=== PATIENT | female | born 2000 | race Caucasian/White ===

== ENCOUNTER → 2021-09-08 17:19 | Outpatient (BNVA) | payer SELFPAY | PROVIDERS: Family Provider Family Medicine; PCP Family Medicine; Visit Provider Family Medicine | DX: N39.0 Urinary tract infection, site not specified (principal) | CPT/HCPCS: 81000 ==

== ENCOUNTER 2021-12-16 11:56 | Emergency (ER) | payer SELFPAY ==
[2021-12-16 12:24] VITALS: BP 135/80; PULSE 83; RESP 16; TEMP 36.9; O2SAT 100; BMI 30.4
--- NOTE | 2021-12-16 12:34 | ECG_ITS ---
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 Measurements Intervals [place] Rate: 76 P: 19 CT: 120 QRS: 10 QRSD: 85 T: 23 QT: 373 QTc: 419 Interpretive Statements SINUS RHYTHM WITH MARKED SINUS ARRHYTHMIA No previous ECG available for comparison Electronically Signed On 12-16-2021 19:06:11 CDT by Lolly Sanchez M.D. [id number]
--- NOTE | 2021-12-16 13:24 | W.ED.SYNCOPE ---
HPI - Syncope General: Chief Complaint: Syncope Stated Complaint: LOC this morning Time Seen by Provider: 12/16/21 13:23 History of Present Illness: 21-year-old female comes in with episodes of dizziness. Patient been having symptoms since the beginning of the year. Patient has been having problems with anxiety and depression. Patient states has been more anxiety. Patient at this time is on hydroxyzine and sertraline for her anxiety. Patient states that the dizzy spells does not correlate with her menstrual cycle. Patient was seen at a urgent care clinic today and was referred to the ER. Patient appears nontoxic. Patient appears no pain. Associated symptoms: Reports nausea; Deny chest pain or fever(s) Review of Systems Const: Denies: fever(s) Card: Denies: chest pain Resp: Denies: dyspnea GI: Reports: nausea and vomiting; Denies: diarrhea : Denies: difficulty voiding Skin/Breast: Denies: rash Neuro: Reports: dizziness Psych: Reports: anxiety Physical Exam Const: COMMON NORMALS: alert HENMT: COMMON NORMALS: normocephalic HEAD & SCALP: normocephalic Eye: COMMON NORMALS: Equal, round and reactive pupils present and EOMs intact bilaterally PUPIL: Yes Equal, round and reactive pupils present Neck/C-Spine: COMMON NORMALS: full ROM and no meningeal signs Resp: COMMON NORMALS: normal respiratory effort and clear to auscultation bilaterally AUSCULTATION: clear to auscultation bilaterally Cardio: COMMON NORMALS: regular rate and regular rhythm RATE: regular rate RHYTHM: regular rhythm GI: COMMON NORMALS: non-tender Back/Pelvis: COMMON NORMALS: thoracic and lumbar spine normal to inspection Extremity: COMMON NORMALS: normal to inspection Neuro: SENSORIUM/ORIENTATION: Yes alert MENINGEAL SIGNS: Yes no meningeal signs Skin: COMMON NORMALS: no rashes or lesions noted GENERAL SKIN EXAM: no rashes or lesions noted Course Vital Signs: Vital signs: Vital Signs Temperature 98.4 F 12/16/21 12:24 Pulse Rate 66 12/16/21 14:52 Respiratory Rate 16 12/16/21 12:24 Blood Pressure 116/70 12/16/21 14:52 Pulse Oximetry 100 12/16/21 12:24 MDM - Syncope Medical Decision Making 21-year-old female comes in today for complaints of dizzy spells. Patient has been having episodes of dizziness for the last 6 months. Patient reports that she was started on sertraline and hydroxyzine for anxiety and since then she has had occasional dizzy spells. Over the last couple of days she has had a couple of spells in which she felt like she was going to pass out. Patient is presently on her menstrual cycle, but states that most of these episodes do not correlate along with menstrual cycle. On exam no focal neural deficits are noted. Pupils are equal and reactive. Patient was all extremities well. No abdominal pain or CVA tenderness is noted. Vital signs are normal. Differential diagnosis includes but not limited to anemia, anxiety, adverse drug effect. CT of the head was unremarkable. Laboratory values noted a hemoglobin 11.7 with some mild microcytosis. CMP did note a blood glucose of 64 otherwise normal. EKG showed a sinus rhythm with sinus arrhythmia. Orthostatic blood pressures were unremarkable. Reviewed exam with patient with recommendations for healthy diet and activity. Suspect that she may have some mild adverse drug effect and recommend changing positions slowly and talking further with her prescribing medical provider. Also recommended a multivitamin with iron to help with her microcytosis. Patient reported understanding of care plan need for follow-up or return to the ER. No signs of serious injury or illness was noted. Lab Data : 12/16/21 13:30 12/16/21 13:[address] 12/16/21 13:58 IMPRESSION: No CT evidence of acute intracranial pathology. Laboratory Results WBC 6.0 10^3/uL (4.0-10.0) 12/16/21 13:30 RBC 4.71 10^6/uL (4.1-5.3) 12/16/21 13:30 Hgb 11.7 g/dL (11.5-15.3) 12/16/21 13:30 Hct 37.8 % (37.0-47.0) 12/16/21 13:30 MCV 80.3 fl (81-99) L 12/16/21 13:30 MCH 24.8 pg (28.0-34.0) L 12/16/21 13:30 MCHC 31.0 g/dL (30.0-36.0) 12/16/21 13:30 RDW 13.7 % (12.1-15.1) 12/16/21 13:30 Plt Count 225 10^3/cmm (130-400) 12/16/21 13:30 MPV 13.5 fL (7.4-10.4) H 12/16/21 13:30 Neut % (Auto) 46.1 % 12/16/21 13:30 Lymph % (Auto) 44.0 % 12/16/21 13:30 [place] % (Auto) 6.6 % 12/16/21 13:30 Eos % (Auto) 2.0 % 12/16/21 13:30 Baso % (Auto) 1.0 % 12/16/21 13:30 Neut # (Auto) 2.78 10^3/uL (1.8-7.7) 12/16/21 13:30 Lymph # (Auto) 2.7 10^3/uL (0.8-4.8) 12/16/21 13:30 [place] # (Auto) 0.4 10^3/uL (0.2-0.9) 12/16/21 13:30 Eos # (Auto) 0.1 10^3/uL (0.0-0.8) 12/16/21 13:30 Baso # (Auto) 0.1 10^3/uL (0.0-0.1) 12/16/21 13:30 Nucleated RBC % (auto) 0 % 12/16/21 13:30 Nucleated RBCs # 0.0 /100WBC 12/16/21 13:30 Sodium 137 mmol/L (136-145) 12/16/21 13:30 Potassium 3.7 mmol/L (3.5-5.1) 12/16/21 13:30 Chloride 101 mmol/L (98-107) 12/16/21 13:30 Carbon Dioxide 26 mmol/L (22-29) 12/16/21 13:30 Anion Gap 13.7 (5-19) 12/16/21 13:30 BUN 6 mg/dL (6-20) 12/16/21 13:30 Creatinine 0.7 mg/dL (0.5-0.9) 12/16/21 13:30 GFR Calculation 104.6 mL/min (90-130) 12/16/21 13:30 Glucose 64 mg/dL (65-115) L 12/16/21 13:30 Calculated Osmolality 280 mOsm/kg (285-295) L 12/16/21 13:30 Calcium 9.3 mg/dL (8.5-10.5) 12/16/21 13:30 HCG, Qual Negative (Negative) 12/16/21 13:30 EKG Data EKG 1: EKG interpretation date: 12/16/21 EKG interpretation time: 14:00 Prior EKG tracings: not available for review Interpretation: EKG shows a sinus arrhythmia with her irregular rate at [address] elevation or ectopy is noted. No prior exam is available for comparison. No STEMI is noted. Discharge Plan Discharge Patient Disposition: Home Clinical Impression: Dizziness, Microcytic anemia, Hypoglycemia, Anxiety Condition: Stable Prescriptions: No Action sertraline 150 mg capsule 150 mg PO DAILY 0RF hydroxyzine HCl 25 mg tablet 25 mg PO BID PRN0RF Discharge Orders: Discharge ED (Routine); Ordered 12/16/21 Ordered By: Josesito May Referrals: Philip Luther MD [Primary Care Provider] - Discharge Diet: As Directed Discharge Activity: Increase activity as tolerated Patient Instructions: Shopping for a Healthy Diet (ED), Dizziness (ED) Activity Restrictions/Additional Instructions: Change positions slowly to help with dizziness. Stay well-hydrated. Eat a healthy diet with frequent small meals with complex carbohydrates and plenty of protein. Follow-up with primary care for further instructions. Return to ER for new concerns. 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
[2021-12-16 13:40] LABS: Basophils # 0.1 10^3/uL (0.0-0.1); Eosinophils # 0.1 10^3/uL (0.0-0.8); Hematocrit 37.8 % (37.0-47.0); Hemoglobin 11.7 g/dL (11.5-15.3); Lymphocytes # 2.7 10^3/uL (0.8-4.8); Mean Corpuscular Hemoglobin 24.8 pg (28.0-34.0); Mean Corpuscular Volume 80.3 fl (81-99); Mean Platelet Volume 13.5 fL (7.4-10.4); Monocytes # 0.4 10^3/uL (0.2-0.9); Monocytes % 6.6 %; Neutrophils # 2.78 10^3/uL (1.8-7.7); Neutrophils % 46.1 %; Nucleated Red Blood Cells % 0 %; Platelet Count 225 10^3/cmm (130-400); Red Blood Count 4.71 10^6/uL (4.1-5.3); Red Cell Distribution Width 13.7 % (12.1-15.1)
[2021-12-16 13:57] LABS: Anion Gap 13.7 (5-19); Blood Urea Nitrogen 6 mg/dL (6-20); Calcium 9.3 mg/dL (8.5-10.5); Carbon Dioxide 26 mmol/L (22-29); Chloride 101 mmol/L (98-107); Glomerular Filtration Rate 104.6 mL/min (90-130); Glucose 64 mg/dL (65-115); Osmolality Calculated 280 mOsm/kg (285-295); Potassium 3.7 mmol/L (3.5-5.1); Sodium 137 mmol/L (136-145)
--- NOTE | 2021-12-16 13:58 | CTR_ITS ---
PROCEDURE INFORMATION: Exam: CT Head Without Contrast Exam date and time: 12/16/2021 3:05 PM Age: 21 years old Clinical indication: Dizziness TECHNIQUE: Imaging protocol: Computed tomography of the head without contrast. Axial, coronal and sagittal reformatted images were created and reviewed. Radiation optimization: All CT scans at this facility use at least one of these dose optimization techniques: automated exposure control; mA and/or kV adjustment per patient size (includes targeted exams where dose is matched to clinical indication); or iterative reconstruction. COMPARISON: CT head wo con* [id number] 02/04/2018 10:46 PM RADIATION DOSE METRICS: Total DLP (mGy-cm): 732.09 FINDINGS: Brain: No CT evidence of acute intracranial hemorrhage or acute territorial infarction. No significant mass effect or midline shift. Basal cisterns patent. Cerebral ventricles: Normal in size and configuration. Paranasal sinuses: Unremarkable. No fluid levels. Mastoid air cells: Grossly unremarkable. Bones/joints: No acute osseous abnormality. Soft tissues: Grossly unremarkable. CT/CT head wo con* [id number] IMPRESSION: No CT evidence of acute intracranial pathology.
[2021-12-16 13:59] LABS: Slide Review Slide Review Perform
[2021-12-16 14:19] LABS: HCG, Serum Qual Negative (Negative)
[2021-12-16 14:52] VITALS: BP 116/70; BP 121/74; BP 141/82; PULSE 66; PULSE 73; PULSE 97
[2021-12-16 16:01] VITALS: BP 122/87; PULSE 68; RESP 14; O2SAT 100
== END 2021-12-16 15:58 | disposition home or self-care (01) ==
PROVIDERS: Emergency Medicine; Emergency Provider Nurse Practitioner Family; PCP Family Medicine
DX: R42 Dizziness and giddiness (principal); D50.9 Iron deficiency anemia, unspecified; F41.9 Anxiety disorder, unspecified; E16.2 Hypoglycemia, unspecified
CPT/HCPCS: 70450; 80048; 84703; 85025; 93005; 99283

== ENCOUNTER → 2022-05-11 10:19 | Outpatient (BNVA) | payer SELFPAY | PROVIDERS: PCP Family Medicine; Visit Provider Nurse Practitioner Women's Health | DX: Z34.01 Encounter for supervision of normal first pregnancy, first trimester (principal); N92.6 Irregular menstruation, unspecified; Z3A.00 Weeks of gestation of pregnancy not specified | CPT/HCPCS: 81025; 83036; 84443 ==

== ENCOUNTER → 2022-05-22 14:54 | Outpatient (BNVA) | payer MEDICAID, SELFPAY | PROVIDERS: PCP Family Medicine; Visit Provider Obstetrics & Gynecology | DX: Z34.91 Encounter for supervision of normal pregnancy, unspecified, first trimester (principal); Z3A.01 Less than 8 weeks gestation of pregnancy | CPT/HCPCS: 76817 ==

== ENCOUNTER → 2022-06-15 10:00 | Outpatient (BNVA) | payer MEDICAID, SELFPAY | PROVIDERS: PCP Family Medicine; Visit Provider Obstetrics & Gynecology | DX: Z34.00 Encounter for supervision of normal first pregnancy, unspecified trimester (principal) | CPT/HCPCS: 80307; 81000; 85025; 86592; 86762; 86803; 86850; 86900; 87086; 87340; 87491; 87591; 87806 ==

== ENCOUNTER → 2022-07-13 09:25 | Outpatient (BNVA) | payer MEDICAID, SELFPAY | PROVIDERS: PCP Family Medicine; Visit Provider Nurse Practitioner Women's Health | DX: Z34.00 Encounter for supervision of normal first pregnancy, unspecified trimester (principal); Z3A.00 Weeks of gestation of pregnancy not specified | CPT/HCPCS: 84315; 85025 ==

== ENCOUNTER → 2022-08-02 07:46 | Outpatient (BNVA) | payer MEDICAID, SELFPAY | PROVIDERS: PCP Family Medicine; Visit Provider Nurse Practitioner Women's Health | DX: O99.119 Other diseases of the blood and blood-forming organs and certain disorders involving the immune mechanism complicating pregnancy, unspecified trimester (principal); D69.6 Thrombocytopenia, unspecified; Z34.00 Encounter for supervision of normal first pregnancy, unspecified trimester; Z28.39 Other underimmunization status; O99.210 Obesity complicating pregnancy, unspecified trimester; Z34.01 Encounter for supervision of normal first pregnancy, first trimester; F41.9 Anxiety disorder, unspecified; F32.A Depression, unspecified; O09.899 Supervision of other high risk pregnancies, unspecified trimester | CPT/HCPCS: 81000; 82105; 82607; 82728; 82746; 83550 ==

== ENCOUNTER → 2022-08-16 12:45 | Outpatient (BNVA) | payer MEDICAID, SELFPAY | PROVIDERS: PCP Family Medicine; Visit Provider Nurse Practitioner Family | DX: R50.9 Fever, unspecified (principal); O23.40 Unspecified infection of urinary tract in pregnancy, unspecified trimester; J06.9 Acute upper respiratory infection, unspecified | CPT/HCPCS: 81000 ==

== ENCOUNTER → 2022-08-28 09:16 | Outpatient (BNVA) | payer MEDICAID, SELFPAY | PROVIDERS: PCP Family Medicine; Visit Provider Nurse Practitioner Women's Health | DX: Z34.92 Encounter for supervision of normal pregnancy, unspecified, second trimester (principal); Z3A.21 21 weeks gestation of pregnancy | CPT/HCPCS: 76805 ==

== ENCOUNTER → 2022-08-31 09:38 | Outpatient (BNVA) | payer MEDICAID, SELFPAY | PROVIDERS: PCP Family Medicine; Visit Provider Obstetrics & Gynecology | DX: Z34.00 Encounter for supervision of normal first pregnancy, unspecified trimester (principal); Z34.01 Encounter for supervision of normal first pregnancy, first trimester; O09.899 Supervision of other high risk pregnancies, unspecified trimester; O99.210 Obesity complicating pregnancy, unspecified trimester; Z28.39 Other underimmunization status; F32.A Depression, unspecified; F41.9 Anxiety disorder, unspecified; D69.6 Thrombocytopenia, unspecified; O99.119 Other diseases of the blood and blood-forming organs and certain disorders involving the immune mechanism complicating pregnancy, unspecified trimester | CPT/HCPCS: 81000 ==

== ENCOUNTER → 2022-09-26 15:07 | Outpatient (BNVA) | payer MEDICAID, SELFPAY | PROVIDERS: PCP Family Medicine; Visit Provider Nurse Practitioner Women's Health | DX: Z34.00 Encounter for supervision of normal first pregnancy, unspecified trimester (principal) | CPT/HCPCS: 81000; 82950 ==

== ENCOUNTER → 2022-10-04 08:20 | Outpatient (BNVA) | payer MEDICAID, SELFPAY | PROVIDERS: PCP Family Medicine; Visit Provider Nurse Practitioner Women's Health | DX: Z34.00 Encounter for supervision of normal first pregnancy, unspecified trimester (principal) | CPT/HCPCS: 82951; 82952 ==

== ENCOUNTER → 2022-10-19 09:10 | Outpatient (BNVA) | payer MEDICAID, SELFPAY | PROVIDERS: PCP Family Medicine; Visit Provider Obstetrics & Gynecology | DX: Z34.90 Encounter for supervision of normal pregnancy, unspecified, unspecified trimester (principal) | CPT/HCPCS: 81000; 85025 ==

== ENCOUNTER → 2022-11-02 08:00 | Outpatient (BNVA) | payer MEDICAID, SELFPAY | PROVIDERS: PCP Family Medicine; Visit Provider Obstetrics & Gynecology | DX: Z34.00 Encounter for supervision of normal first pregnancy, unspecified trimester (principal); E53.8 Deficiency of other specified B group vitamins; D69.6 Thrombocytopenia, unspecified | CPT/HCPCS: 81000 ==

== ENCOUNTER → 2022-11-16 10:23 | Outpatient (BNVA) | payer MEDICAID, SELFPAY | PROVIDERS: PCP Family Medicine; Visit Provider Obstetrics & Gynecology | DX: Z34.00 Encounter for supervision of normal first pregnancy, unspecified trimester (principal) | CPT/HCPCS: 81000 ==

== ENCOUNTER 2022-12-04 20:10 | Outpatient (CLI) | payer OTHER, MEDICAID, SELFPAY ==
[2022-12-04] VITALS (7 sets, daily range): BP systolic 121–131; BP diastolic 63–84; PULSE 66–105; RESP 15; TEMP 36.2; BMI 36.3
[2022-12-04 21:04] LABS: Bilirubin Urine Neg (Negative); Blood Urine Neg (Negative); Glucose Urine UA Norm (Normal); Ketones Urine 1+ (Negative); Leukocyte Esterase Urine Negative (Negative); Nitrate Urine Negative (Negative); Protein Urine Neg (Negative); Urine Appearance Hazy (CLEAR); Urine Color Yellow (Yellow); Urobilinogen Urine Norm (Negative); pH Urine 5 (5-7)
[2022-12-04 21:05] LABS: Add Urine Culture? No; Bacteria Urine TRACE /hpf; Mucus Urine 3+ /hpf; Squamous Epithelial Cell Urine 25-40 /hpf (0-5); WBC Urine 0-4 /hpf (0-5)
[2022-12-04 21:54] LABS: Basophils % 0.2 %; Eosinophils # 0.1 10^3/uL (0.0-0.8); Hematocrit 33.9 % (37.0-47.0); Hemoglobin 10.5 g/dL (11.5-15.3); Lymphocytes # 1.9 10^3/uL (0.8-4.8); Lymphocytes % 23.4 %; Mean Corpuscular Hemoglobin 26.5 pg (28.0-34.0); Mean Corpuscular Volume 85.6 fl (81-99); Monocytes # 0.4 10^3/uL (0.2-0.9); Monocytes % 4.3 %; Neutrophils # 5.73 10^3/uL (1.8-7.7); Neutrophils % 70.6 %; Nucleated Red Blood Cells % 0 %; Platelet Count 110 10^3/cmm (130-400); Red Blood Count 3.96 10^6/uL (4.1-5.3); Red Cell Distribution Width 14.6 % (12.1-15.1); White Blood Count 8.1 10^3/uL (4.0-10.0)
[2022-12-04] MEDS: dextrose 5%-lactated ringers 1,000 ML 999 ML IV ×2 (21:57→23:15)
[2022-12-04 21:59] LABS: Urine Creatinine 146 mg/dL (28-217); Urine Protein Random 18 mg/dL
[2022-12-04] MEDS: acetaminophen 500 mg Tablet 1000 MG PO (22:01)
[2022-12-04 22:09] LABS: UPRO/UCREAT Ratio 0.12 mg/mg CR
[2022-12-04 22:14] LABS: Alanine Aminotransferase < 5 U/L (0-33); Albumin Level 3.2 g/dL (3.5-5.2); Alkaline Phosphatase 106 U/L (35-105); Aspartate Amino Transferase 13 U/L (0-32); Blood Urea Nitrogen 4 mg/dL (6-20); Calcium 8.8 mg/dL (8.5-10.5); Carbon Dioxide 20 mmol/L (22-29); Chloride 101 mmol/L (98-107); Globulin 3.3 g/dL (1.3-4.6); Glomerular Filtration Rate 123.9 mL/min (90-130); Glucose 144 mg/dL (65-115); Osmolality Calculated 277 mOsm/kg (285-295); Sodium 134 mmol/L (136-145); Total Bilirubin 0.2 mg/dL (0.15-1.2); Total Protein 6.5 g/dL (6.6-8.7)
[2022-12-04 22:18] LABS: Anion Gap 16.7 (5-19); Potassium 3.7 mmol/L (3.5-5.1)
[2022-12-04 22:51] LABS: Slide Review Slide Review Perform
== END 2022-12-04 23:48 | disposition home or self-care (01) ==
LOC: OPOB 20:13 → OBGYN 20:13
PROVIDERS: PCP Family Medicine; Visit Provider Obstetrics & Gynecology
DX: O26.899 Other specified pregnancy related conditions, unspecified trimester (principal); R51.9 Headache, unspecified; Z3A.00 Weeks of gestation of pregnancy not specified
CPT/HCPCS: 36415; 59025; 80053; 81000; 81001; 82570; 84156; 84550; 85025; 99211; J7121

== ENCOUNTER 2022-12-12 15:45 | Outpatient (CLI) | payer OTHER, MEDICAID, SELFPAY ==
[2022-12-12] VITALS (10 sets, daily range): BP systolic 109–133; BP diastolic 65–72; PULSE 67–100; RESP 15; TEMP 36.3; BMI 37.4
[2022-12-12 17:38] LABS: Basophils % 0.3 %; Eosinophils # 0.1 10^3/uL (0.0-0.8); Eosinophils % 0.8 %; Hematocrit 31.7 % (37.0-47.0); Lymphocytes # 1.7 10^3/uL (0.8-4.8); Lymphocytes % 23.4 %; Mean Corpuscular HGB Conc 31.5 g/dL (30.0-36.0); Mean Corpuscular Hemoglobin 26.6 pg (28.0-34.0); Mean Corpuscular Volume 84.3 fl (81-99); Monocytes # 0.4 10^3/uL (0.2-0.9); Monocytes % 6.1 %; Neutrophils # 4.99 10^3/uL (1.8-7.7); Nucleated Red Blood Cells % 0 %; Platelet Count 116 10^3/cmm (130-400); Red Blood Count 3.76 10^6/uL (4.1-5.3); Red Cell Distribution Width 14.6 % (12.1-15.1); White Blood Count 7.2 10^3/uL (4.0-10.0)
[2022-12-12 17:55] LABS: Bilirubin Urine Neg (Negative); Blood Urine Neg (Negative); Glucose Urine UA Norm (Normal); Ketones Urine Negative (Negative); Nitrate Urine Negative (Negative); Protein Urine Neg (Negative); Urine Appearance Hazy (CLEAR); Urine Color Light yellow (Yellow); pH Urine 6 (5-7)
[2022-12-12 17:56] LABS: Add Urine Microscopic? YES; Bacteria Urine TRACE /hpf; Leukocyte Esterase Urine Negative (Negative); RBC Urine RARE /hpf (0-2); Squamous Epithelial Cell Urine 25-40 /hpf (0-5); Urobilinogen Urine Norm (Negative)
[2022-12-12 17:57] LABS: Add Urine Culture? No
[2022-12-12] MEDS: acetaminophen 500 mg Tablet 1000 MG PO (17:57)
[2022-12-12] MEDS: lactated ringers 1,000 ML 999 ML IV (18:00)
[2022-12-12 18:03] LABS: Alanine Aminotransferase 7 U/L (0-33); Albumin Level 3.3 g/dL (3.5-5.2); Alkaline Phosphatase 109 U/L (35-105); Anion Gap 15.7 (5-19); Aspartate Amino Transferase 10 U/L (0-32); Blood Urea Nitrogen 4 mg/dL (6-20); Calcium 8.6 mg/dL (8.5-10.5); Carbon Dioxide 20 mmol/L (22-29); Chloride 101 mmol/L (98-107); Globulin 2.7 g/dL (1.3-4.6); Glomerular Filtration Rate 152.9 mL/min (90-130); Glucose 94 mg/dL (65-115); Osmolality Calculated 273 mOsm/kg (285-295); Potassium 3.7 mmol/L (3.5-5.1); Sodium 133 mmol/L (136-145); Total Bilirubin 0.2 mg/dL (0.15-1.2); Uric Acid 3.8 mg/dL (2.4-5.7)
[2022-12-12 18:11] LABS: Urine Creatinine 19 mg/dL (28-217); Urine Protein Random 4 mg/dL
[2022-12-12 18:18] LABS: UPRO/UCREAT Ratio 0.21 mg/mg CR
== END 2022-12-12 18:38 | disposition home or self-care (01) ==
LOC: OPOB 15:54 → OBGYN 15:54
PROVIDERS: PCP Family Medicine; Visit Provider Obstetrics & Gynecology
DX: O26.899 Other specified pregnancy related conditions, unspecified trimester (principal); R51.9 Headache, unspecified; Z3A.00 Weeks of gestation of pregnancy not specified
CPT/HCPCS: 36415; 59025; 80053; 81001; 82570; 84156; 84550; 85025; 99211; J7120

== ENCOUNTER → 2022-12-14 10:05 | Outpatient (BNVA) | payer MEDICAID, SELFPAY | PROVIDERS: PCP Family Medicine; Visit Provider Obstetrics & Gynecology | DX: Z34.00 Encounter for supervision of normal first pregnancy, unspecified trimester (principal) | CPT/HCPCS: 81000; 87081 ==

== ENCOUNTER 2022-12-20 08:22 | Oncology outpatient (recurring) (ONCR) | payer OTHER, MEDICAID, SELFPAY ==
[2022-12-20 09:53] LABS: Hematocrit 37.1 % (37.0-47.0); Hemoglobin 11.4 g/dL (11.5-15.3); Mean Corpuscular HGB Conc 30.7 g/dL (30.0-36.0); Mean Corpuscular Hemoglobin 25.9 pg (28.0-34.0); Mean Corpuscular Volume 84.3 fl (81-99); Platelet Count 111 10^3/cmm (130-400); Red Cell Distribution Width 14.6 % (12.1-15.1); White Blood Count 7.8 10^3/uL (4.0-10.0)
[2022-12-20 11:24] LABS: Absolute Segmented Neutrophil 4.5 10/cmm (1.6-7.1); Band Neutrophils Absolute 0.3 10^3/cmm (0.0-1.2); Eosinophils 1 %; Lymphocytes 24 %; Monocytes Absolute 0.3 10^3/cmm (0.1-0.6); Segmented Neutrophils 58 %; Slide Review Slide Review Perform; Total Cells Counted 100 (0-100)
[2022-12-20 11:25] LABS: Absolute Neutrophil 4.8 10^3/cmm (1.4-6.5); Lymphocytes Absolute 2.6 10^3/cmm (1.2-3.4); Platelet Estimate Decreased (Normal)
[2022-12-20 11:49] LABS: LAB Peripheral Smear Sent for Review
== END 2023-01-04 23:59 | disposition home or self-care (01) ==
PROVIDERS: PCP Family Medicine; Visit Provider Internal Medicine Medical Oncology
DX: O99.019 Anemia complicating pregnancy, unspecified trimester (principal); Z3A.00 Weeks of gestation of pregnancy not specified; D50.9 Iron deficiency anemia, unspecified
CPT/HCPCS: 36415; 85007; 85025

== ENCOUNTER → 2022-12-21 09:30 | Outpatient (BNVA) | payer OTHER, MEDICAID, SELFPAY | PROVIDERS: PCP Family Medicine; Visit Provider Obstetrics & Gynecology | DX: Z34.90 Encounter for supervision of normal pregnancy, unspecified, unspecified trimester (principal); Z3A.00 Weeks of gestation of pregnancy not specified | CPT/HCPCS: 81000 ==

== ENCOUNTER 2022-12-25 04:27 | Inpatient (IN) | payer OTHER, MEDICAID, SELFPAY ==
[2022-12-25] VITALS (65 sets, daily range): BP systolic 93–141; BP diastolic 55–93; PULSE 50–214; RESP 16–18; TEMP 36.7–37.5; O2SAT 55–100; BMI 37.3
[2022-12-25 04:36] LABS: Basophils % 0.3 %; Eosinophils # 0.1 10^3/uL (0.0-0.8); Eosinophils % 0.8 %; Hematocrit 35.2 % (37.0-47.0); Hemoglobin 10.6 g/dL (11.5-15.3); Lymphocytes # 2.6 10^3/uL (0.8-4.8); Lymphocytes % 26.9 %; Mean Corpuscular HGB Conc 30.1 g/dL (30.0-36.0); Mean Corpuscular Hemoglobin 25.5 pg (28.0-34.0); Mean Corpuscular Volume 84.6 fl (81-99); Monocytes # 0.6 10^3/uL (0.2-0.9); Monocytes % 6.3 %; Neutrophils # 6.35 10^3/uL (1.8-7.7); Neutrophils % 65.1 %; Nucleated Red Blood Cells % 0 %; Platelet Count 129 10^3/cmm (130-400); Red Blood Count 4.16 10^6/uL (4.1-5.3); Red Cell Distribution Width 14.6 % (12.1-15.1); White Blood Count 9.8 10^3/uL (4.0-10.0)
[2022-12-25] MEDS: lactated ringers 1,000 ML 999 ML IV (07:39)
[2022-12-25] MEDS: fentaNYL 50 mcg/mL INJ 2mL IVP ×3 (13:09→16:19)
[2022-12-25] MEDS: dextrose 5%-lactated ringers 1,000 ML 999 ML IV (17:52)
--- NOTE | 2022-12-25 18:35 | ANES.PREANE2 ---
Pre-Anesthetic Assessment Height/Weight: Height 1.7 m Weight 107.955 kg Temp Pulse Resp BP Pulse Ox O2 Del Method 99.5 F 95 18 122/77 100 Room Air 12/25/22 18:26 12/25/22 18:32 12/25/22 16:19 12/25/22 18:32 12/25/22 18:32 12/25/22 04:00 Familial anesthetic complications: none Was Beta Marce taken within 24 hours: N/A Was Clonidine taken within 24 hours: N/A Social No alcohol and No tobacco Exam alert, oriented x 3, clear to auscultation bilaterally and regular rate & rhythm Airway Submandibular: within normal limits Cervical ROM: within normal limits Mallampati: Class II Dentition: full CV/HEM Anemia Metabolic Morbid Obesity Anesthetic Plan ASA status: 2 Anesthesia: Regional (specify below) (Labor epidural) Medications/Allergies Home Medications Medication Instructions Recorded Confirmed Last Taken Type prenat.vits,gita,yil-pine-gxidh 1 tab PO DAILY 05/11/22 12/21/22 12/12/22 History ferrous sulfate 325 mg (65 mg 325 mg PO BID #60 tabs 08/03/22 12/21/22 12/12/22 Rx iron) tablet folic acid 1 mg tablet 2 mg PO DAILY #60 tabs 08/03/22 12/21/22 12/12/22 Rx mecobalamin (vitamin B12) 1,000 2,000 mcg PO DAILY 09/26/22 12/21/22 12/12/22 History mcg chewable tablet (B12 Active) Allergies Allergy/AdvReac Type Severity Reaction Status Date / Time No Known Allergies Allergy Verified 12/21/22 09:41 Current Medications Generic Name Dose Route Start Last Admin Trade Name Freq PRN Reason Stop Dose Admin Fentanyl 25 - 100 mcg 12/25/22 04:18 12/25/22 16:19 Fentanyl 50 Mcg/Ml Inj 2ml IVP 75 mcg Q1H PRN Administration SEVERE PAIN Lactated Ringer's 1,000 mls @ 999 mls/hr 12/25/22 04:18 12/25/22 17:07 Lactated Ringers IV 999 mls/hr .Q1H1M PRN Infusion Per L&D Rescitation Protocol Dextrose/Lactated Ringer's 1,000 mls @ 125 mls/hr 12/25/22 04:30 12/25/22 18:10 Dextrose 5%-Lactated Ringers IV 125 mls/hr .Q8H DEBORAH Infusion Ropivacaine 100 mg in 50 mls @ 10 mls/hr 12/25/22 17:15 12/25/22 18:20 Naropin Syringe EPIDURAL 10 mls/hr .Q5H DEBORAH Administration PFSH Anesthesia Medical History Anxiety and depression managed with zoloft and vistaril from her PCP. She stopped medication mid Apr 2022. 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 Surgical History History of lumpectomy of left breast (~2017) benign fibroadenoma Family History (Updated 12/20/22 @ 09:02 by Aman Ashraf MD) Grandfather Hypercholesteremia Paternal Hypertension Paternal Metastatic cancer Grandmother Breast cancer Paternal--dx age 52 Denies family history of Colon cancer Ovarian cancer Diabetes Heart disease Uterine cancer Thyroid disease Stroke Social History (Updated 12/20/22 @ 08:32 by Rosie Westbrook RN) Smoking and tobacco status: never smoked Alcohol intake: current Alcohol intake frequency: holidays/special occasions only Substance/Drug Use: never Female Reproductive History : 1 Data Anesthesia 12/25/22 04:13 Short CBC 12/25/22 Range/Units 04:13 WBC 9.8 (4.0-10.0) 10^3/uL Hgb 10.6 L (11.5-15.3) g/dL Hct 35.2 L (37.0-47.0) % MCV 84.6 (81-99) fl Plt Count 129 L (130-400) 10^3/cmm Neut % (Auto) 65.1 % Neut # (Auto) 6.35 (1.8-7.7) 10^3/uL Cardiac Studies: No Data to Display Anesthesia Procedures Epidural Time Out Performed: Yes Consents Signed: Procedure Consent Consent: requested by attending/covering physician, from patient, risks and benefits reviewed and patient agrees to proceed Lumbar Level: L3-L4 Epidural position: sitting Epidural procedure: sterile prep of area, 1% lidocaine to numb the area, 18 g needle, neg for paresthesia, test dose given, 1.5% xylocaine 1:200k epi, 0.2% Ropivacaine bolus ml (5), placed PCEA, no systemic response, sterile dressing applied and 0.2% Ropiavacaine @ mls/hr (10) Additional Comments: RUPESH at 6cm, cath at 11cm
[2022-12-25] MEDS: dextrose 5%-lactated ringers 1,000 ML 125 ML IV (20:25)
[2022-12-26] VITALS (34 sets, daily range): BP systolic 105–154; BP diastolic 53–89; PULSE 54–127; RESP 16–18; TEMP 36.6–38.6; O2SAT 97–98
[2022-12-26] MEDS: acetaminophen 325 mg Tablet 650 MG PO (03:26)
[2022-12-26] MEDS: ampicillin 2,000 MG in sodium chloride 0.9% (plus) 50 ML 100 MG IV (03:26)
--- NOTE | 2022-12-26 04:40 | PM.DELIVERY ---
Delivery Note: Date of delivery: December 26, 2022 Pre-delivery diagnoses: iup@ 37w6d, active labor, rubella non-immune Post-delivery diagnoses: same Procedure: Delivering Physician: Kait Estimated blood loss (mL): 100 Findings: term male in the straight OA presentation Pre-Delivery Course: The patient was admitted in active labor. She progressed to complete cervical dilation and AROM with clear fluid was performed. She was allowed to labor down. She spiked a fever of 101 about 3 hours later and the baby had tachycardia. Ampicillin and gentamycin was started for fever prophylaxis. She also began pushing. Delivery: The patient had complete cervical dilation and began to push. The head delivered in the straight OA position over an intact perineum under epidural anesthesia. The nose and mouth were bulb suctioned. The shoulders and body delivered atraumatically. The baby was placed onto the mother's abdomen. The cord was clamped and cut. Cord blood was obtained. The placenta delivered spontaneously. It was inspected and found to be intact. Inspection of the perineum revealed a small left sulcus tear. It was repaired in a running suture with O-Vicryl. There was excellent hemostasis post repair. Estimated blood loss 100 mL. Apgars on baby were 8 at 1 minute and 9 at 5 minutes. Weight of baby is 7 pounds 3 ounces. Mother and baby were stable post delivery. History History History 1 Term 0 0 Miscarriages/Ectopic 0 Living Children 0 Coding Level of Care Code Acute Code for Chg Fwd Diagnoses
--- NOTE | 2022-12-26 05:36 | PM.OPHPUD ---
Labor & Delivery H&P Update Date of Procedure: December 25, 2022 Date H&P Performed: 12/21/22 H&P update information: I have reviewed H&P completed within last 30 days, I have examined patient prior to procedure and Changes to prior documentation as noted here Changes to previous documentation: The patient is being admitted for active labor, iup@ 37 weeks 5 days Admission Diagnosis: Related Problem List Diagnoses (1) Rubella non-immune status, antepartum: (2) Obesity affecting : (3) Supervision of normal first :
--- NOTE | 2022-12-26 07:14 | PC.NURSE ---
This nurse called Dr. Carballo to let her know pt was running fever and baby was running tachy. She gave orders to start GBS protocol, and gentamicin 80mg q8hr for 24 hr. on 12/26/22 @3063.
[2022-12-26] MEDS: benzocaine-menthol 78 gm Canister 1 SPRAY TOPICAL (08:42)
[2022-12-26] MEDS: ibuprofen 800 mg tablet PO ×3 (08:42→22:01)
[2022-12-26] MEDS: lanolin oint 7 gm 1 APPLIC TOPICAL (08:42)
[2022-12-26] MEDS: ampicillin 1,000 MG in sodium chloride 0.9% (plus) 50 ML 100 MG IV ×4 (08:43→22:00)
[2022-12-26] MEDS: docusate sodium 100 mg Capsule PO ×2 (08:43→17:17)
[2022-12-26] MEDS: prenatal vitamin Capsule 1 CAP PO (08:43)
[2022-12-26] MEDS: dextrose 5%-lactated ringers 1,000 ML 125 ML IV (08:49)
--- NOTE | 2022-12-26 09:29 | ANE.PACU2 ---
Inpatient post-anesthesia follow up: Airway intact: Yes Vital signs: Temperature 100.2 F Pulse Rate 79 Respiratory Rate 18 Blood Pressure 110/57 Pulse Oximetry 100 Oxygen Delivery Me thod Room Air Oxygen Flow Rate Fraction of Inspir ed Oxygen Hydration adequate: Yes Nausea and vomiting: No Pain level: 2 Mental status: Baseline
[2022-12-26 16:52] LABS: Hematocrit 29.3 % (37.0-47.0); Hemoglobin 8.9 g/dL (11.5-15.3); Mean Corpuscular HGB Conc 30.4 g/dL (30.0-36.0); Mean Corpuscular Hemoglobin 25.8 pg (28.0-34.0); Mean Corpuscular Volume 84.9 fl (81-99); Platelet Count 119 10^3/cmm (130-400); Red Blood Count 3.45 10^6/uL (4.1-5.3); Red Cell Distribution Width 14.9 % (12.1-15.1); White Blood Count 14.3 10^3/uL (4.0-10.0)
[2022-12-27] MEDS: ampicillin 1,000 MG in sodium chloride 0.9% (plus) 50 ML 100 MG IV ×3 (02:29→10:56)
[2022-12-27 06:00] VITALS: BP 118/80; PULSE 87; RESP 16; TEMP 36.6; O2SAT 99
[2022-12-27] MEDS: ibuprofen 800 mg tablet PO ×2 (09:24→14:45)
[2022-12-27] MEDS: prenatal vitamin Capsule 1 CAP PO (09:24)
[2022-12-27] MEDS: docusate sodium 100 mg Capsule PO (09:24)
[2022-12-27 10:00] VITALS: BP 121/76; PULSE 98; RESP 15; O2SAT 98
--- NOTE | 2022-12-27 13:09 | PM.DCS ---
Discharge Providers Date of Admission: 12/25/22 04:27 Date of Discharge: December 27, 2022 Attending Provider at Admission: Luis Doherty MD Attending Provider at Discharge: Anna Carballo MD Primary Care Provider: Philip Luther MD Diagnoses at Discharge Discharge Diagnosis (1) Rubella non-immune status, antepartum: Status: Acute (2) Obesity affecting : Status: Acute (3) Supervision of normal first : Status: Acute Qualifiers: Trimester: first trimester Qualified Code(s): Z34.01 - Encounter for supervision of normal first , first trimester Reason for Visit Reason for Visit: contractions Hospital Course Hospital Course The patient was admitted in active labor. she had spontaneous delivery of a term . She did well and was ready for discharge on day #1 Physical Exam Narrative: The patient is doing well today. She is ambulating, tolerating a regular diet and pain is well controlled. She has received 24 hours of antibiotics and has not had another fever. Baby is on 48 hours of antibiotics due to fever after delivery. Const: COMMON NORMALS: no acute distress, patient oriented x3, no limitations, alert and well nourished Resp: COMMON NORMALS: normal respiratory effort EFFORT & INSPECTION: Yes able to speak in complete sentences GI: COMMON NORMALS: Soft to palpation and non-tender PALPATION: Yes Soft to palpation Extremity: COMMON NORMALS: no calf tenderness Neuro: COMMON NORMALS: patient oriented x3 SENSORIUM/ORIENTATION: Yes alert Urinary Catheter Management: Vasquez: Cath Placed During This Visit: yes, but has since been removed by the nurse Reason for Continuing Indwelling Catheter: Decision to DC Catheter Urinary Catheter Date of Insertion: 12/25/22 Urinary Catheter Time of Insertion: 19:10 Date Urinary Catheter Removed: 12/26/22 Time Urinary Catheter Discontinued: 04:00 Discharge Data Studies Completed and Pending Laboratory Results WBC 14.3 10^3/uL (4.0-10.0) H 12/26/22 16:20 RBC 3.45 10^6/uL (4.1-5.3) L 12/26/22 16:20 Hgb 8.9 g/dL (11.5-15.3) L 12/26/22 16:20 Hct 29.3 % (37.0-47.0) L 12/26/22 16:20 MCV 84.9 fl (81-99) 12/26/22 16:20 MCH 25.8 pg (28.0-34.0) L 12/26/22 16:20 MCHC 30.4 g/dL (30.0-36.0) 12/26/22 16:20 RDW 14.9 % (12.1-15.1) 12/26/22 16:20 Plt Count 119 10^3/cmm (130-400) L 12/26/22 16:20 MPV Not Reportable 12/26/22 16:20 Neut % (Auto) 65.1 % 12/25/22 04:13 Lymph % (Auto) 26.9 % 12/25/22 04:13 [place] % (Auto) 6.3 % 12/25/22 04:13 Eos % (Auto) 0.8 % 12/25/22 04:13 Baso % (Auto) 0.3 % 12/25/22 04:13 Neut # (Auto) 6.35 10^3/uL (1.8-7.7) 12/25/22 04:13 Lymph # (Auto) 2.6 10^3/uL (0.8-4.8) 12/25/22 04:13 [place] # (Auto) 0.6 10^3/uL (0.2-0.9) 12/25/22 04:13 Eos # (Auto) 0.1 10^3/uL (0.0-0.8) 12/25/22 04:13 Baso # (Auto) 0.0 10^3/uL (0.0-0.1) 12/25/22 04:13 Nucleated RBC % (auto) 0 % 12/25/22 04:13 Nucleated RBCs # 0.0 /100WBC 12/25/22 04:13 Vitals Last Vital Signs Temp 97.9 F 12/27/22 06:00 Pulse 87 12/27/22 06:00 Resp 16 12/27/22 06:00 BP 118/80 12/27/22 06:00 Pulse Ox 99 12/27/22 06:00 O2 Del Method Room Air 12/27/22 06:00 Discharge Plan Discharge Condition: Stable Prescriptions: New ibuprofen 800 mg Tablet 800 mg PO TID Qty: 30 0RF Continued mecobalamin (vitamin B12) [B12 Active] 1,000 mcg tablet,chewable 2,000 mcg PO DAILY prenat.vits,gita,evy-fbad-rlcor Tablet 1 tab PO DAILY ferrous sulfate 325 mg (65 mg iron) tablet 325 mg PO BID Qty: 60 4RF folic acid 1 mg tablet 2 mg PO DAILY Qty: 60 6RF Discharge Orders: Discharge Order (Routine); Ordered 12/27/22 Ordered By: Anna Carballo Patient Instructions: Depression (DC), Opioid Safety (DC), Preeclampsia and Eclampsia After Delivery (GEN), Hemorrhage (DC), OB Discharge Report, OB Food/Drug Interaction Guide, OB Care at Home, Opioid Safety, Abnormal Bleeding Discharge Attestations Time Spent in Discharge Care*: less than 30 min Quality Metrics Clinical Quality Measures [ No reported AMI, CVA or VTE this stay] Coding Level of Care Code Acute Code for Chg Fwd Diagnoses Rubella non-immune status, antepartum O09.899; Z28.39 Obesity affecting O99.210 Supervision of normal first Z34.01 Trimester: first trimester
[2022-12-27 15:00] VITALS: BP 121/76; PULSE 100; RESP 14; O2SAT 98
[2022-12-27] MEDS: measles,mumps,rubella pf Vial (w/diluent) 0.5 ML SUBCUT (15:06)
== END 2022-12-27 15:17 | disposition home or self-care (01) | DRG 807 ==
LOC: OPOB 07:12 → OBGYN 07:12
PROVIDERS: Obstetrics & Gynecology; Admitting Provider Obstetrics & Gynecology; PCP Family Medicine; Visit Provider Obstetrics & Gynecology
DX: O75.2 Pyrexia during labor, not elsewhere classified (principal); Z37.0 Single live birth; O99.02 Anemia complicating childbirth; D64.9 Anemia, unspecified; O99.214 Obesity complicating childbirth; E66.01 Morbid (severe) obesity due to excess calories; O99.344 Other mental disorders complicating childbirth; O70.0 First degree perineal laceration during delivery; Z3A.37 37 weeks gestation of pregnancy; F41.9 Anxiety disorder, unspecified; F32.A Depression, unspecified
CPT/HCPCS: 36415; 51702; 59025; 59409; 85025; 85027; 90707; 96372; 96374; 96376; 99211; J0290; J1580; J2795; J3010; J7040; J7120; J7121

== ENCOUNTER 2024-03-22 17:10 | Emergency (ER) | payer OTHER, MEDICAID, SELFPAY ==
[2024-03-22 17:30] VITALS: BP 114/74; PULSE 83; RESP 14; TEMP 36.8; O2SAT 100; BMI 32.8
--- NOTE | 2024-03-22 17:43 | W.ED.FALL ---
HPI - Fall General: Chief Complaint: Fall Stated Complaint: all over back pain Time Seen by Provider: 03/22/24 17:42 History of Present Illness: 23-year-old female comes in today for injury to the back. Patient reports that she was going outside and had proceeded down 2 steps off the front porch and slipped and landed on the concrete. Patient showed a video of the incident from the ring camera show patient slipping and coming down on her buttocks. Patient reports some back discomfort. Patient appears nontoxic. Patient appears no acute distress. Related Data Home Medications Medication Instructions Recorded Confirmed prenat.vits,gita,xbr-qbzm-wacro 1 tab PO DAILY 05/11/22 02/04/23 Previous Rx's Medication Instructions Recorded hydrocodone 5 mg-acetaminophen 325 1 tab PO Q6H PRN pain #10 tabs 03/22/24 mg tablet Allergies Allergy/AdvReac Type Severity Reaction Status Date / Time No Known Allergies Allergy Verified 12/21/22 09:41 Review of Systems General: Reports: 10 or more systems reviewed and unremarkable except in HPI and below Musc: Reports: back pain [facility] PFSH: Medical History Anemia Anxiety and depression managed with zoloft and vistaril from her PCP. She stopped medication mid Apr 2022. Iron deficiency anemia of mother during Irregular menses No pertinent past medical history neghx: htn,dm,thyroid,dvt/pe PCP: Ayleen Alonso [employer] Rubella non-immune status, antepartum Thrombocytopenia affecting Vitamin B 12 deficiency Surgical History History of lumpectomy of left breast (~2018) benign fibroadenoma Family History Grandfather Hypercholesteremia Paternal Hypertension Paternal Metastatic cancer Grandmother Breast cancer Paternal--dx age 52 Denies family history of Colon cancer Ovarian cancer Diabetes Heart disease Uterine cancer Thyroid disease Stroke Social History Smoking and tobacco/nicotine status: never used tobacco/nicotine Alcohol intake: current Alcohol intake frequency: holidays/special occasions only Substance/Drug Use: never Physical Exam Const: COMMON NORMALS: alert HENMT: COMMON NORMALS: normocephalic HEAD & SCALP: normocephalic Neck/C-Spine: COMMON NORMALS: full ROM Resp: COMMON NORMALS: normal respiratory effort Cardio: COMMON NORMALS: regular rate RATE: regular rate Back/Pelvis: COMMON NORMALS: thoracic and lumbar spine normal to inspection OTHER: Palpable tenderness along the thoracic and lumbar spine. Extremity: COMMON NORMALS: full ROM Neuro: SENSORIUM/ORIENTATION: Yes alert Skin: COMMON NORMALS: no mottling Course Vital Signs: Vital signs: Vital Signs Temperature 98.2 F 03/22/24 17:30 Pulse Rate 83 03/22/24 17:30 Respiratory Rate 14 03/22/24 17:30 Blood Pressure 114/74 03/22/24 17:30 Pulse Oximetry 100 03/22/24 17:30 Oxygen Delivery Me thod Room Air 03/22/24 17:30 MDM - Fall Medical Decision Making 23-year-old female comes in today for complaints of back pain. Patient appears nontoxic. Patient has some palpable tenderness of the thoracic and lumbar spine. Patient moves all extremities well. Patient ambulates with minimal to no difficulty. Differential diagnosis includes but not limited to intervertebral disc disorder, contusion, strain, fracture. CT of the cervical spine was negative for injury. CT of thoracic spine was negative for injury. CT of the lumbar spine noted fractures through the right transverse process of L1 and L2. Patient is ambulate without difficulty. Patient was recommended use acetaminophen and ibuprofen to control pain. Patient was recommend use of hydrocodone for severe pain. Patient reports understanding of care plan need for follow-up or return to the ER for worsening symptoms. Reviewed patient with Dr. Barajas, attending ER physician, he agreed with plan and recommendations for follow-up. Lab Data Radiology Impressions Cervical Spine CT 03/22/24 18:00 IMPRESSION: No acute findings. Lumbar Spine CT 03/22/24 18:00 IMPRESSION: Fractures through the right transverse processes of L1 and L2. Thoracic Spine CT 03/22/24 18:00 IMPRESSION: No acute findings. Laboratory Results HCG, Qual Negative (Negative) 03/22/24 18:03 All radiology interpretation(s) finalized by discharge Discharge Plan Discharge Patient Disposition: Home Clinical Impression: Lumbar transverse process fracture Qualifiers: Encounter type: initial encounter Fracture type: closed Qualified Code(s): S32.009A - Unspecified fracture of unspecified lumbar vertebra, initial encounter for closed fracture Condition: Stable Prescriptions: New hydrocodone-acetaminophen 5-325 mg tablet 1 tab PO Q6H PRN (Reason: pain) Qty: 10 0RF No Action prenat.vits,gita,vrf-yknq-inynx Tablet 1 tab PO DAILY Discharge Orders: Discharge ED (Routine); Ordered 03/22/24 Ordered By: Josesito May Referrals: Philip Luther MD [Primary Care Provider] - Discharge Diet: Usual diet Discharge Activity: Increase activity as tolerated Patient Instructions: Transverse Process Fracture (ED) Activity Restrictions/Additional Instructions: Activity as tolerated. Take acetaminophen ibuprofen to control pain. Use hydrocodone for severe pain. Use ice or heat for further pain relief. Follow-up with primary care as needed. Case management will contact you regarding follow-up appointment with orthopedic spine. Coding Level of Care Code ED [employer] for Sangita Goldsmith
--- NOTE | 2024-03-22 18:00 | CTR_ITS ---
PROCEDURE INFORMATION: Exam: CT Thoracic Spine Without Contrast Exam date and time: 03/22/2024 6:48 PM Age: 23 years old Clinical indication: Injury or trauma; Fall; Blunt trauma (contusions or hematomas); Patient HX: Patient fel onto ground walking down porch steps. C/O neck and upper and lower back pain. Abrasions to mid back. ; Additional info: Fall injury TECHNIQUE: Imaging protocol: Computed tomography of the thoracic spine without contrast. Radiation optimization: All CT scans at this facility use at least one of these dose optimization techniques: automated exposure control; mA and/or kV adjustment per patient size (includes targeted exams where dose is matched to clinical indication); or iterative reconstruction. COMPARISON: CT cervical spin wo con* [id number] 03/22/2024 6:46 PM RADIATION DOSE METRICS: Total DLP (mGy-cm): 852.93 FINDINGS: Bones/joints: No acute fracture. Normal alignment. No significant disc bulge or herniation. No severe spinal canal stenosis. No significant neural foraminal narrowing. Soft tissues: Unremarkable. CT/CT thoracic spin wo con* [id number] IMPRESSION: No acute findings.
--- NOTE | 2024-03-22 18:00 | CTR_ITS ---
PROCEDURE INFORMATION: Exam: CT Lumbar Spine Without Contrast Exam date and time: 03/22/2024 6:51 PM Age: 23 years old Clinical indication: Injury or trauma; Fall; Blunt trauma (contusions or hematomas); Patient HX: Patient fel onto ground walking down porch steps. C/O neck and upper and lower back pain. Abrasions to mid back. ; Additional info: Fall injury TECHNIQUE: Imaging protocol: Computed tomography of the lumbar spine without contrast. Radiation optimization: All CT scans at this facility use at least one of these dose optimization techniques: automated exposure control; mA and/or kV adjustment per patient size (includes targeted exams where dose is matched to clinical indication); or iterative reconstruction. COMPARISON: CT thoracic spin wo con* [id number] 03/22/2024 6:48 PM RADIATION DOSE METRICS: Total DLP (mGy-cm): 772.54 FINDINGS: Bones/joints: Fractures through the right transverse processes of L1 and L2. No additional fractures. Normal alignment. No significant disc bulge or herniation. No severe spinal canal stenosis. No significant neural foraminal narrowing. Soft tissues: Unremarkable. CT/CT lumbar spine wo con* [id number] IMPRESSION: Fractures through the right transverse processes of L1 and L2.
--- NOTE | 2024-03-22 18:00 | CTR_ITS ---
PROCEDURE INFORMATION: Exam: CT Cervical Spine Without Contrast Exam date and time: 03/22/2024 6:46 PM Age: 23 years old Clinical indication: Injury or trauma; Fall; Blunt trauma; Patient HX: Patient fel onto ground walking down porch steps. C/O neck and upper and lower back pain. Abrasions to mid back. ; Additional info: Fall injury TECHNIQUE: Imaging protocol: Computed tomography of the cervical spine without contrast. Radiation optimization: All CT scans at this facility use at least one of these dose optimization techniques: automated exposure control; mA and/or kV adjustment per patient size (includes targeted exams where dose is matched to clinical indication); or iterative reconstruction. COMPARISON: CT cervical spin wo con* [id number] 02/04/2018 10:55 PM RADIATION DOSE METRICS: Total DLP (mGy-cm): 459.68 FINDINGS: Bones: No acute fracture. Normal alignment. No significant disc bulge or herniation. No severe spinal canal stenosis. No significant neural foraminal narrowing. Lungs: Lung apices are normal. Soft tissues: Unremarkable. CT/CT cervical spin wo con* [id number] IMPRESSION: No acute findings.
[2024-03-22 18:09] LABS: HCG Qualitative Urine. Negative (Negative)
[2024-03-22] MEDS: HYDROcodone-acetaminophen 5-325 mg Tablet 1 TAB PO (20:28)
[2024-03-22 20:29] VITALS: BP 117/70; PULSE 97; O2SAT 98
--- NOTE | 2024-03-23 08:32 | DCPLANNER ---
messaged ortho for er f/u
== END 2024-03-22 20:28 | disposition home or self-care (01) ==
PROVIDERS: Emergency Provider Nurse Practitioner Family; PCP Family Medicine
DX: S32.019A Unspecified fracture of first lumbar vertebra, initial encounter for closed fracture (principal); S32.029A Unspecified fracture of second lumbar vertebra, initial encounter for closed fracture; W10.8XXA Fall (on) (from) other stairs and steps, initial encounter
CPT/HCPCS: 72125; 72128; 72131; 81025; 99284

== ENCOUNTER → 2024-03-26 14:35 | Outpatient (BNVA) | payer OTHER, MEDICAID, SELFPAY | PROVIDERS: PCP Family Medicine; Visit Provider Orthopaedic Surgery | DX: S32.009A Unspecified fracture of unspecified lumbar vertebra, initial encounter for closed fracture (principal); W19.XXXA Unspecified fall, initial encounter; M54.9 Dorsalgia, unspecified | CPT/HCPCS: 72110 ==

== ENCOUNTER → 2025-05-19 11:08 | Outpatient (BNVA) | payer OTHER, MEDICAID, SELFPAY | PROVIDERS: PCP Family Medicine; Visit Provider Nurse Practitioner Women's Health | DX: N91.2 Amenorrhea, unspecified (principal); Z32.01 Encounter for pregnancy test, result positive | CPT/HCPCS: 81025; 84702; 86850; 86900 ==

== ENCOUNTER → 2025-06-24 14:16 | Outpatient (BNVA) | payer OTHER, MEDICAID, SELFPAY | PROVIDERS: PCP Family Medicine; Visit Provider Obstetrics & Gynecology | DX: O99.211 Obesity complicating pregnancy, first trimester (principal); Z3A.00 Weeks of gestation of pregnancy not specified | CPT/HCPCS: 80307; 82950; 84315; 84443; 85025; 86592; 86762; 86803; 87086; 87340; 87491; 87591; 87661; 87806 ==